=== PATIENT | female | born 1950 | race Caucasian/White ===

== ENCOUNTER 2017-11-07 16:25 | Emergency (ER) | payer OTHER ==
[~2017-11-07] VITALS: Ht 157.5 cm; Wt 59.0 kg
[~2017-11-07 16:25] MED LIST: ASPIRIN EC325 M1 PO; ENALAPRIL MALEAT5 M1 PO; GLUCOPHAGE1000 MG PO; LANTUS100 UNIT/M SUBQ; NOVOLOG100 UNIT/1 SQ; ULTRAM 50MG TAB50 MG PO; VYTORIN 10-101 EACH PO
[2017-11-07] MEDS ORDERED: ATENOLOL 25 MG25 M1 PO (16:47)
[2017-11-07] MEDS ORDERED: CLONAZEPAM 0.50.5 M1 PO (16:47)
[2017-11-07] MEDS ORDERED: VASOTEC10 MG PO (16:48)
[2017-11-07] MEDS ORDERED: LOPERAMIDE 2 MG2 M1 PO (16:48)
[2017-11-07] MEDS ORDERED: LEVEMIR SUBQ (16:48)
[2017-11-07] MEDS ORDERED: PEPCID20 MG PO (16:48)
[2017-11-07] MEDS ORDERED: ZETIA10 MG PO (16:48)
[2017-11-07] MEDS ORDERED: FLOVENT HFA 4444 MCG INH (16:48)
[2017-11-07] MEDS ORDERED: METFORMIN HCL500 MG PO (16:49)
[2017-11-07] MEDS ORDERED: PRAVACHOL40 MG PO (16:49)
[2017-11-07] MEDS ORDERED: REMERON15 MG PO (16:49)
[2017-11-07] MEDS ORDERED: TYLENOL325 MG PO (16:51)
[2017-11-07] MEDS ORDERED: RISAMINE OINTM113 GM TOP (16:51)
[2017-11-07] MEDS ORDERED: ONDANSETRON HCL4 M2 PO (16:52)
[2017-11-07] MEDS ORDERED: VESICARE10 M1 PO (16:52)
[2017-11-07 19:26] VITALS: BP 152/63
== END 2017-11-07 19:26 | disposition home or self-care (01) ==
LOC: ER 16:25
DX: S09.90XA Unspecified injury of head, initial encounter (principal); S02.2XXA Fracture of nasal bones, initial encounter for closed fracture; S16.1XXA Strain of muscle, fascia and tendon at neck level, initial encounter; M25.571 Pain in right ankle and joints of right foot; F03.90 Unspecified dementia, unspecified severity, without behavioral disturbance, psychotic disturbance, mood disturbance, and anxiety; W19.XXXA Unspecified fall, initial encounter; Y93.01 Activity, walking, marching and hiking; Y92.89 Other specified places as the place of occurrence of the external cause; Y99.8 Other external cause status

== ENCOUNTER 2017-11-25 08:48 | Emergency (ER) | payer OTHER ==
[~2017-11-25] VITALS: Ht 157.5 cm; Wt 52.2 kg
[~2017-11-25 08:48] MED LIST changes: +ATENOLOL 25 MG25 M1 PO; +CLONAZEPAM 0.50.5 M1 PO; +FLOVENT HFA 4444 MCG INH; +LEVEMIR SUBQ; +LOPERAMIDE 2 MG2 M1 PO; +METFORMIN HCL500 MG PO; +ONDANSETRON HCL4 M2 PO; +PEPCID20 MG PO; +PRAVACHOL40 MG PO; +REMERON15 MG PO; +RISAMINE OINTM113 GM TOP; +TYLENOL325 MG PO; +VASOTEC10 MG PO; +VESICARE10 M1 PO; +ZETIA10 MG PO
[2017-11-25 09:57] LABS: ABSOLUTE NEUTROPHILS 6.2 thou/uL (1.4-8.2); BASOPHILS 0.4 % (0.0-2.0); HEMATOCRIT 32.8 % (37.0-47.0); LYMPHOCYTES 15.9 % (24.0-44.0); MCH 28.8 pg (26.0-34.0); MCHC 33.4 g/dL (28.0-37.0); MCV 86.2 fL (80.0-100.0); MONOCYTES 6.3 % (1.0-8.0); PLATELET COUNT 239 thou/uL (150-400); POLYS 75.4 % (36.0-66.0); RDW 14.3 % (10.5-14.5); WBC 8.3 thou/uL (4.0-11.0)
[2017-11-25 10:04] LABS: CALCIUM 8.7 mg/dL (8.5-10.1); CREATININE 0.4 mg/dL (0.6-1.0); POTASSIUM 4.7 mmol/L (3.5-5.1)
[2017-11-25 12:23] LABS: URINE BILIRUBIN NEGATIVE (Negative); URINE BLOOD NEGATIVE (Negative); URINE CLARITY CLEAR; URINE COLOR YELLOW; URINE GLUCOSE-RANDOM* NEGATIVE (Negative); URINE KETONES NEGATIVE (Negative); URINE LEUKOCYTES NEGATIVE (Negative); URINE NITRITE NEGATIVE (Negative); URINE PROTEIN (DIPSTICK) NEGATIVE (Negative); URINE SPECIFIC GRAVITY 1.015 (1.005-1.035); URINE UROBILINOGEN 0.2 E.U./dl (0.2-1.0)
[2017-11-25 15:14] VITALS: BP 134/73
== END 2017-11-25 15:15 ==
LOC: ER 08:48
PROVIDERS: Nurse Practitioner
DX: S00.83XA Contusion of other part of head, initial encounter (principal); F03.90 Unspecified dementia, unspecified severity, without behavioral disturbance, psychotic disturbance, mood disturbance, and anxiety; Z90.710 Acquired absence of both cervix and uterus; Z90.5 Acquired absence of kidney; Z88.0 Allergy status to penicillin; W05.0XXA Fall from non-moving wheelchair, initial encounter; Y93.89 Activity, other specified; Y92.89 Other specified places as the place of occurrence of the external cause; Y99.8 Other external cause status

== ENCOUNTER 2018-05-26 17:42 | Inpatient (IN) | payer OTHER ==
[~2018-05-26] VITALS: Ht 160 cm; Wt 39.9 kg
[2018-05-26 17:43] VITALS: BP 170/83
[2018-05-26 18:16] LABS: ABSOLUTE NEUTROPHILS 6.4 thou/uL (1.4-8.2); BASOPHILS 0.6 % (0.0-2.0); EOSINOPHILS 1.3 % (0.0-3.0); HEMATOCRIT 34.4 % (37.0-47.0); HEMOGLOBIN 11.8 gm/dL (12.0-15.0); LYMPHOCYTES 18.8 % (24.0-44.0); MCH 29.4 pg (26.0-34.0); MCHC 34.2 g/dL (28.0-37.0); MCV 86.1 fL (80.0-100.0); MONOCYTES 5.9 % (1.0-8.0); PLATELET COUNT 246 thou/uL (150-400); POLYS 73.4 % (36.0-66.0); RDW 13.9 % (10.5-14.5); WBC 8.8 thou/uL (4.0-11.0)
[2018-05-26 18:21] LABS: CALCIUM 9.7 mg/dL (8.5-10.1); CREATININE 0.4 mg/dL (0.6-1.0); POTASSIUM 4.2 mmol/L (3.5-5.1)
[2018-05-26 18:31] LABS: APTT 22.6 Seconds (24.5-32.8); PROTIME 10.6 Seconds (9.3-11.4)
[2018-05-26 19:05] LABS: URINE CLARITY SLIGHTLY CLOUDY; URINE COLOR YELLOW
[2018-05-26 19:06] LABS: URINE BILIRUBIN NEGATIVE (Negative); URINE BLOOD 1+ (Negative); URINE GLUCOSE-RANDOM* NEGATIVE (Negative); URINE KETONES 2+ (Negative); URINE LEUKOCYTES-REFLEX 3+ (Negative); URINE NITRITE-REFLEX NEGATIVE (Negative); URINE PROTEIN (DIPSTICK) NEGATIVE (Negative); URINE UROBILINOGEN 0.2 E.U./dl (0.2-1.0)
[2018-05-26 19:12] LABS: BACTERIA-REFLEX >30 Many /HPF (None Seen); CASTS None Seen /LPF (None Seen); CRYSTALS None Seen /LPF (None Seen); SQUAMOUS 0-3 Few /LPF (0-3); URINE RBC 0-2 Rare /HPF (0-2)
[2018-05-26 19:47] VITALS: BP 170/94
[2018-05-26] MEDS ORDERED: XANAX 0.25 MG0.25 MG PO (21:41)
[2018-05-26] MEDS ORDERED: CATAPRES-TTS 20.2 MG TRANSDERM (21:43)
[2018-05-26] MEDS ORDERED: LEVEMIR SUBQ (21:44)
[2018-05-26 21:47] VITALS: BP 154/109
[2018-05-26 22:44] VITALS: BP 161/77
[2018-05-27 04:09] LABS: CALCIUM 8.5 mg/dL (8.5-10.1); CREATININE 0.4 mg/dL (0.6-1.0); POTASSIUM 3.8 mmol/L (3.5-5.1)
[2018-05-27 05:00] VITALS: BP 135/76
[2018-05-27 05:04] LABS: FOLIC ACID 29.8 ng/mL (8.6-58.9)
[2018-05-27 09:23] VITALS: BP 127/58
[2018-05-27 13:01] VITALS: BP 132/76
[2018-05-27 16:44] VITALS: BP 138/71
[2018-05-27 19:40] VITALS: BP 144/88
[2018-05-28 04:01] VITALS: BP 173/78
[2018-05-28 07:16] VITALS: BP 146/81
[2018-05-28 10:28] LABS: CALCIUM 9.1 mg/dL (8.5-10.1); CREATININE 0.4 mg/dL (0.6-1.0); POTASSIUM 3.5 mmol/L (3.5-5.1)
[2018-05-28 11:45] VITALS: BP 152/65
[2018-05-28] MEDS ORDERED: KEFLEX500 M1 PO (12:40)
[2018-05-28 13:54] VITALS: BP 152/65
== END 2018-05-28 16:51 | DRG 871 ==
LOC: ER 17:42 → 2N 19:21 → EROBS 19:21 → 2N 21:43
PROVIDERS: Emergency Medicine; Hospitalist; Nurse Practitioner Family
DX: A41.9 Sepsis, unspecified organism (principal); E43 Unspecified severe protein-calorie malnutrition; N17.9 Acute kidney failure, unspecified; N39.0 Urinary tract infection, site not specified; G93.40 Encephalopathy, unspecified; Z68.1 Body mass index [BMI] 19.9 or less, adult; F03.90 Unspecified dementia, unspecified severity, without behavioral disturbance, psychotic disturbance, mood disturbance, and anxiety; E78.5 Hyperlipidemia, unspecified; E11.22 Type 2 diabetes mellitus with diabetic chronic kidney disease; N18.9 Chronic kidney disease, unspecified; K21.9 Gastro-esophageal reflux disease without esophagitis; F32.9 Major depressive disorder, single episode, unspecified; F41.9 Anxiety disorder, unspecified; R29.6 Repeated falls; I12.9 Hypertensive chronic kidney disease with stage 1 through stage 4 chronic kidney disease, or unspecified chronic kidney disease; E11.51 Type 2 diabetes mellitus with diabetic peripheral angiopathy without gangrene; J45.909 Unspecified asthma, uncomplicated; Z87.820 Personal history of traumatic brain injury; Z79.82 Long term (current) use of aspirin; Z79.899 Other long term (current) drug therapy; Z90.5 Acquired absence of kidney; Z90.710 Acquired absence of both cervix and uterus; Z88.0 Allergy status to penicillin; Z23 Encounter for immunization
CPT/HCPCS: 10081